=== PATIENT | female | born 1960 | race African-American/Black ===

== ENCOUNTER 2024-07-12 08:56 | Inpatient (IN) | payer MEDICARE ==
[~2024-07-12] VITALS: Ht 170.2 cm; Wt 93.0 kg
[2024-07-12] MEDS ORDERED: METOCLOPRAMIDE HCL 10 MG/2 ML VIAL ONE (10:05)
[2024-07-12] MEDS: METOCLOPRAMIDE HCL 10 MG/2 ML VIAL IV ONE (10:15)
[2024-07-12 10:33] LABS: BASOPHILS % (AUTO) 0.7 % (0.0-2.0); EOSINOPHILS % (AUTO) 0.4 % (0.0-6.0); HEMATOCRIT 36 % (33-45); HEMOGLOBIN 11.1 g/dL (11.5-14.8); LYMPHOCYTES # (AUTO) 0.7 K/uL (0.8-4.8); LYMPHOCYTES % (AUTO) 11.4 % (20.0-44.0); MEAN CORPUSCULAR HEMOGLOBIN 26 PG (26.0-33.0); MEAN CORPUSCULAR HGB CONC 31 g/dl (31.0-36.0); MEAN CORPUSCULAR VOLUME 84 fL (82-100); MONOCYTES # (AUTO) 0.2 K/uL (0.1-1.30); MONOCYTES % (AUTO) 3.8 % (2.0-12.0); NEUTROPHILS # (AUTO) 5.1 K/uL (1.8-8.9); NEUTROPHILS % (AUTO) 83.7 % (43.0-81.0); PLATELET COUNT (AUTO) 198 K/uL (150-450); RED BLOOD CELL COUNT(AUTO) 4.21 MIL/uL (4.0-5.2); RED CELL DISTRIBUTION WIDTH 19.3 % (11.5-15.0); WHITE BLOOD COUNT (AUTO) 6.1 K/uL (4.3-11.0)
[2024-07-12 11:00] LABS: ALANINE AMINOTRANSFERASE 47 U/L (12-78); ALBUMIN 4.5 g/dL (3.4-5.0); ALKALINE PHOSPHATASE 104 U/L (46-116); ASPARTATE AMINOTRANSFERASE 64 U/L (15-37); BILIRUBIN,DIRECT 0.1 mg/dL (0.0-0.2); BILIRUBIN,TOTAL 0.3 mg/dL (0.2-1.0); CALCIUM, SERUM 10.1 mg/dL (8.5-10.1); CARBON DIOXIDE 23 mmol/L (21-32); CHLORIDE 99 mmol/L (98-107); CREATININE 1.2 mg/dL (0.6-1.3); GLUCOSE 115 mg/dL (74-106); NT-PRO BNP 1024 pg/mL (0-125); POTASSIUM 4.6 mmol/L (3.5-5.1); SODIUM SERUM 136 mmol/L (136-145); TOTAL PROTEIN, SERUM 8.7 g/dL (6.4-8.2); UREA NITROGEN, BLOOD 17 mg/dL (7-18)
[2024-07-12] MEDS ORDERED: ASPIRIN 325 MG TABLET ONE (11:20)
[2024-07-12] MEDS ORDERED: LABETALOL HCL IV 100MG VIAL ONE (11:20)
[2024-07-12] MEDS: ASPIRIN 325 MG TABLET PO ONE (11:25)
[2024-07-12] MEDS: LABETALOL 20 MG/4 ML VIAL IV ONE (11:27)
[2024-07-12] MEDS ORDERED: IBUP-1957 PO (12:07)
[2024-07-12] MEDS ORDERED: NORT25CA PO (12:07)
[2024-07-12] MEDS ORDERED: OXYC10TA49 PO (12:07)
[2024-07-12] MEDS ORDERED: SPIR50TA5 PO (12:07)
[2024-07-12] MEDS ORDERED: OMEP20CA15 PO (12:07)
[2024-07-12] MEDS ORDERED: HYDR25TA4 PO (12:07)
[2024-07-12] MEDS ORDERED: COLC0.6C3 PO (12:07)
[2024-07-12] MEDS ORDERED: ALLO100T PO (12:07)
[2024-07-12] MEDS ORDERED: FLUT16SP NS (12:07)
[2024-07-12] MEDS ORDERED: ONDANSETRON HCL/PF 4 MG/2 ML VIAL IVP PRN (12:30)
[2024-07-12] MEDS ORDERED: Z GUARD REMEDY 4 OZ OINT TP PRN (12:30)
[2024-07-12] MEDS ORDERED: MAG HYDROX/AL HYDROX/SIMETH 30 ML UDC PO PRN (12:30)
[2024-07-12] MEDS ORDERED: MAGNESIUM HYDROXIDE 30 ML UDC PO PRN (12:30)
[2024-07-12] MEDS ORDERED: FLUTICASONE PROPIONATE 16 GM BOTTLE NS PRN (12:30)
[2024-07-12 12:45] VITALS: BP 167/82; TEMP 98.7; O2SAT 100
[2024-07-12] MEDS: ASPIRIN 81 MG TAB.CHEW PO ONE (13:01)
[2024-07-12] MEDS: hydrALAZINE HCL 50 MG TABLET PO SCH (13:24)
[2024-07-12] MEDS: ATORVASTATIN 10 MG TABLET PO SCH (13:25)
[2024-07-12] MEDS: PANTOPRAZOLE 40 MG TABLET.DR PO SCH (13:25)
[2024-07-12] MEDS: METOPROLOL TARTRATE 50 MG TABLET PO SCH (13:25)
[2024-07-12 13:33] LABS: THYROID STIMULATING HORMONE 1.76 uIU/mL (0.358-3.74)
[2024-07-12] MEDS ORDERED: NALOXONE HCL 0.4 MG/ML AMPUL IV PRN (14:30)
[2024-07-12] MEDS: oxyCODONE HCL SR 10MG TAB.SR.12H PO SCH (15:11)
[2024-07-12 16:00] VITALS: BP 144/70; TEMP 98.6; O2SAT 100
[2024-07-12] MEDS: COLCHICINE 0.6 MG TABLET PO SCH (17:09)
[2024-07-12] MEDS: SPIRONOLACTONE 25 MG TABLET PO SCH (17:10)
[2024-07-12] MEDS: ACETAMINOPHEN 325 MG TABLET PO PRN (18:49)
[2024-07-12 21:00] VITALS: BP 166/77; TEMP 99.3; O2SAT 100
[2024-07-12] MEDS: NORTRIPTYLINE HCL 25 MG CAPSULE PO SCH (21:16)
[2024-07-13 01:00] VITALS: BP 177/74; TEMP 98.8; O2SAT 100
[2024-07-13] MEDS: CLONIDINE HCL 0.1 MG TABLET PO PRN (01:45)
[2024-07-13 05:00] VITALS: BP 142/86; TEMP 98.2; O2SAT 99
[2024-07-13 06:47] LABS: BASOPHILS % (AUTO) 0.6 % (0.0-2.0); EOSINOPHILS # (AUTO) 0.2 K/uL (0.0-0.7); EOSINOPHILS % (AUTO) 3.2 % (0.0-6.0); HEMATOCRIT 37 % (33-45); HEMOGLOBIN 11.7 g/dL (11.5-14.8); LYMPHOCYTES # (AUTO) 1.8 K/uL (0.8-4.8); LYMPHOCYTES % (AUTO) 35.3 % (20.0-44.0); MEAN CORPUSCULAR HEMOGLOBIN 26 PG (26.0-33.0); MEAN CORPUSCULAR HGB CONC 32 g/dl (31.0-36.0); MEAN CORPUSCULAR VOLUME 84 fL (82-100); MONOCYTES # (AUTO) 0.5 K/uL (0.1-1.30); MONOCYTES % (AUTO) 9.5 % (2.0-12.0); NEUTROPHILS # (AUTO) 2.6 K/uL (1.8-8.9); NEUTROPHILS % (AUTO) 51.4 % (43.0-81.0); PLATELET COUNT (AUTO) 214 K/uL (150-450); RED BLOOD CELL COUNT(AUTO) 4.42 MIL/uL (4.0-5.2); RED CELL DISTRIBUTION WIDTH 19.2 % (11.5-15.0)
[2024-07-13 06:59] LABS: ALBUMIN 3.9 g/dL (3.4-5.0); BILIRUBIN,TOTAL 0.3 mg/dL (0.2-1.0); CALCIUM, SERUM 9.8 mg/dL (8.5-10.1); CREATININE 1.2 mg/dL (0.6-1.3); MAGNESIUM 1.7 mg/dL (1.8-2.4); PHOSPHORUS 4.1 mg/dL (2.5-4.9); POTASSIUM 4.2 mmol/L (3.5-5.1); TOTAL PROTEIN, SERUM 7.8 g/dL (6.4-8.2)
[2024-07-13] MEDS: ALLOPURINOL 100 MG TABLET PO SCH (08:49)
[2024-07-13] MEDS: HYDROCHLOROTHIAZIDE 25 MG TABLET PO SCH (08:50)
[2024-07-13 09:00] VITALS: BP 150/77; TEMP 97.9; O2SAT 100
[2024-07-13] MEDS: MAGNESIUM OXIDE 400 MG TABLET PO ONE (10:42)
[2024-07-13] MEDS ORDERED: ASPI-1169 PO (11:20)
[2024-07-13 12:39] VITALS: BP 150/83
[2024-07-14 11:10] LABS: *SPE ALBUMIN 3.9 g/dL (2.9-4.4); *SPE ALPHA-1-GLOBULIN 0.4 g/dL (0.0-0.4); *SPE ALPHA-2-GLOBULIN 0.8 g/dL (0.4-1.0); *SPE BETA GLOBULIN 1.4 g/dL (0.7-1.3); *SPE GLOBULIN, TOTAL 4.1 g/dL (2.2-3.9); *SPE M-SPIKE Not Observed g/dL (Not Observed); *SPEGAMMA GLOBULIN 1.6 g/dL (0.4-1.8)
== END 2024-07-13 12:50 | disposition home or self-care (01) | DRG 282 ==
LOC: ER 09:01 → TELE1 12:21
PROVIDERS: ADMIT Internal Medicine; ATTEND Internal Medicine
DX: I16.1 Hypertensive emergency (principal); I21.A1 Myocardial infarction type 2; G89.4 Chronic pain syndrome; E78.5 Hyperlipidemia, unspecified; R51.9 Headache, unspecified; I73.9 Peripheral vascular disease, unspecified; Z91.041 Radiographic dye allergy status
CPT/HCPCS: 36415; 70450-TC; 71045-TC; 80048-TC; 80053-TC; 80061-TC; 80076-TC; 83735-TC; 83880; 84100-TC; 84155; 84165; 84439-TC; 84443-TC; 84484-TC; 85025-TC; 93307-TC; G0378; J2765; J3490

== ENCOUNTER 2024-07-30 10:38 | Inpatient (IN) | payer MEDICARE ==
[~2024-07-30] VITALS: Ht 165.1 cm; Wt 82.6 kg
[~2024-07-30 10:38] MED LIST: ALLO100T PO; ASPI-1169 PO; COLC0.6C3 PO; FLUT16SP NS; HYDR25TA4 PO; IBUP-1957 PO; NORT25CA PO; OMEP20CA15 PO; OXYC10TA49 PO; SPIR50TA5 PO
[2024-07-30 11:20] LABS: BASOPHILS % (AUTO) 0.4 % (0.0-2.0); HEMATOCRIT 42 % (33-45); HEMOGLOBIN 13.5 g/dL (11.5-14.8); LYMPHOCYTES # (AUTO) 0.7 K/uL (0.8-4.8); LYMPHOCYTES % (AUTO) 22.1 % (20.0-44.0); MEAN CORPUSCULAR HEMOGLOBIN 26 PG (26.0-33.0); MEAN CORPUSCULAR HGB CONC 32 g/dl (31.0-36.0); MEAN CORPUSCULAR VOLUME 82 fL (82-100); MONOCYTES # (AUTO) 0.6 K/uL (0.1-1.30); MONOCYTES % (AUTO) 20.7 % (2.0-12.0); NEUTROPHILS # (AUTO) 1.7 K/uL (1.8-8.9); NEUTROPHILS % (AUTO) 55.8 % (43.0-81.0); PLATELET COUNT (AUTO) 159 K/uL (150-450); RED BLOOD CELL COUNT(AUTO) 5.13 MIL/uL (4.0-5.2); RED CELL DISTRIBUTION WIDTH 18.9 % (11.5-15.0)
[2024-07-30] MEDS: IV NS 0.9% 1,000 ML BAG IV ONE (11:30)
[2024-07-30 11:54] LABS: CALCIUM, SERUM 9.8 mg/dL (8.5-10.1); CARBON DIOXIDE 24 mmol/L (21-32); CHLORIDE 91 mmol/L (98-107); CREATININE 1.9 mg/dL (0.6-1.3); GLUCOSE 100 mg/dL (74-106); POTASSIUM 5.5 mmol/L (3.5-5.1); SODIUM SERUM 126 mmol/L (136-145); UREA NITROGEN, BLOOD 65 mg/dL (7-18)
[2024-07-30 12:00] LABS: ALANINE AMINOTRANSFERASE 45 U/L (12-78); ALBUMIN 3.6 g/dL (3.4-5.0); ALKALINE PHOSPHATASE 128 U/L (46-116); ASPARTATE AMINOTRANSFERASE 54 U/L (15-37); BILIRUBIN,DIRECT 0.1 mg/dL (0.0-0.2); BILIRUBIN,TOTAL 0.4 mg/dL (0.2-1.0); TOTAL PROTEIN, SERUM 8.4 g/dL (6.4-8.2)
[2024-07-30] MEDS ORDERED: ASPI-1169 PO (12:14)
[2024-07-30 14:27] LABS: APPEARANCE,URINE CLEAR (CLEAR); BILIRUBIN,URINE NEGATIVE (NEGATIVE); BLOOD, URINE 2+ Ery/uL (NEGATIVE); COLOR,URINE YELLOW (YELLOW); KETONES,URINE NEGATIVE (NEGATIVE); LEUKOCYTE ESTERASE ,URINE TRACE (NEGATIVE); NITRITE, URINE NEGATIVE (NEGATIVE); PH,URINE 5.5 (5.0-8.0); PROTEIN,URINE NEGATIVE (NEGATIVE); UGLUCOSE NEGATIVE (NEGATIVE); UROBILINOGEN,URINE 0.2 EU/dL (0.2)
[2024-07-30] MEDS ORDERED: ALLOPURINOL 100 MG TABLET ONE (14:33)
[2024-07-30] MEDS ORDERED: oxyCODONE HCL SR 10MG TAB.SR.12H PO ONE (14:33)
[2024-07-30 14:34] LABS: ADD URINE CULTURE NO; BACTERIA,URINE Few /HPF (None Seen)
[2024-07-30] MEDS ORDERED: ASPIRIN 81 MG TAB.CHEW ONE (14:34)
[2024-07-30] MEDS ORDERED: SPIRONOLACTONE 25 MG TABLET ONE (14:34)
[2024-07-30] MEDS ORDERED: HYDROCHLOROTHIAZIDE 25 MG TABLET ONE (14:34)
[2024-07-30] MEDS: SPIRONOLACTONE 25 MG TABLET PO ONE (14:56)
[2024-07-30] MEDS: ASPIRIN EC 81 MG TABLET.DR PO ONE (14:56)
[2024-07-30] MEDS: ALLOPURINOL 100 MG TABLET PO ONE (14:57)
[2024-07-30] MEDS: HYDROCHLOROTHIAZIDE 25 MG TABLET PO ONE (14:57)
[2024-07-30] MEDS: oxyCODONE HCL SR 10MG TAB.SR.12H PO SCH (14:58)
[2024-07-30] MEDS ORDERED: IBUPROFEN 800 MG TABLET PO PRN (15:00)
[2024-07-30] MEDS ORDERED: MAG HYDROX/AL HYDROX/SIMETH 30 ML UDC PO PRN (15:00)
[2024-07-30] MEDS ORDERED: ONDANSETRON HCL/PF 4 MG/2 ML VIAL IVP PRN (15:00)
[2024-07-30] MEDS ORDERED: ACETAMINOPHEN 325 MG TABLET PO PRN (15:00)
[2024-07-30] MEDS ORDERED: FLUTICASONE PROPIONATE 16 GM BOTTLE NS PRN (15:00)
[2024-07-30] MEDS ORDERED: MAGNESIUM HYDROXIDE 30 ML UDC PO PRN (15:00)
[2024-07-30] MEDS ORDERED: Z GUARD REMEDY 4 OZ OINT TP PRN (15:00)
[2024-07-30] MEDS: CEPHALEXIN MONOHYDRATE 500 MG CAPSULE PO SCH (16:10)
[2024-07-30] MEDS: COLCHICINE 0.6 MG TABLET PO SCH (16:21)
[2024-07-30] MEDS: IV NS 0.9% 1,000 ML BAG IV PRN (16:32)
[2024-07-30] MEDS ORDERED: SPIRONOLACTONE 25 MG TABLET PO SCH (17:00)
[2024-07-30 20:00] VITALS: BP 139/86; TEMP 98.8; O2SAT 98
[2024-07-30] MEDS: NORTRIPTYLINE HCL 25 MG CAPSULE PO SCH (21:16)
[2024-07-31] VITALS: BP 135/78; TEMP 98.8; O2SAT 98
[2024-07-31] MEDS: oxyCODONE IR immediate release 5 MG TABLET PO PRN (02:17)
[2024-07-31 05:00] VITALS: BP 129/82; TEMP 98.4; O2SAT 96
[2024-07-31 06:37] LABS: CREATININE 1.5 mg/dL (0.6-1.3); MAGNESIUM 1.9 mg/dL (1.8-2.4); POTASSIUM 4.7 mmol/L (3.5-5.1)
[2024-07-31 06:38] LABS: BASOPHILS % (AUTO) 0.4 % (0.0-2.0); EOSINOPHILS % (AUTO) 0.6 % (0.0-6.0); HEMATOCRIT 38 % (33-45); HEMOGLOBIN 12.6 g/dL (11.5-14.8); LYMPHOCYTES # (AUTO) 0.6 K/uL (0.8-4.8); LYMPHOCYTES % (AUTO) 24.9 % (20.0-44.0); MEAN CORPUSCULAR HEMOGLOBIN 27 PG (26.0-33.0); MEAN CORPUSCULAR HGB CONC 33 g/dl (31.0-36.0); MEAN CORPUSCULAR VOLUME 82 fL (82-100); MONOCYTES # (AUTO) 0.7 K/uL (0.1-1.30); MONOCYTES % (AUTO) 26.8 % (2.0-12.0); NEUTROPHILS # (AUTO) 1.2 K/uL (1.8-8.9); NEUTROPHILS % (AUTO) 47.3 % (43.0-81.0); PLATELET COUNT (AUTO) 135 K/uL (150-450); RED CELL DISTRIBUTION WIDTH 18.8 % (11.5-15.0); WHITE BLOOD COUNT (AUTO) 2.5 K/uL (4.3-11.0)
[2024-07-31 07:08] LABS: THYROID STIMULATING HORMONE 0.94 uIU/mL (0.358-3.74)
[2024-07-31 08:00] VITALS: BP 127/76; TEMP 97.5; O2SAT 98
[2024-07-31] MEDS: ASPIRIN 81 MG TAB.CHEW PO SCH (08:09)
[2024-07-31] MEDS: PANTOPRAZOLE 40 MG TABLET.DR PO SCH (08:09)
[2024-07-31] MEDS: ALLOPURINOL 100 MG TABLET PO SCH (08:09)
[2024-07-31] MEDS ORDERED: HYDROCHLOROTHIAZIDE 25 MG TABLET PO SCH (09:00)
[2024-07-31 09:52] LABS: ANISOCYTOSIS 1+; BASOPHILS % (MANUAL) 0 % (0.0-2.0); EOSINOPHILS % (MANUAL) 2 % (0-4); LYMPHOCYTES % (MANUAL) 22 % (16-48); MONOCYTES % (MANUAL) 25 % (0-11.0); NEUTROPHILS % (MANUAL) 57 (42-76); OVALOCYTES 1+; PLATELET ESTIMATE DECREASED
[2024-07-31 16:00] VITALS: BP 132/82; TEMP 97.9; O2SAT 98
[2024-07-31 20:00] VITALS: BP 111/82; TEMP 97.3; O2SAT 99
[2024-07-31 20:47] LABS: APPEARANCE,URINE CLEAR (CLEAR); BILIRUBIN,URINE NEGATIVE (NEGATIVE); BLOOD, URINE TRACE-INTA Ery/uL (NEGATIVE); COLOR,URINE YELLOW (YELLOW); KETONES,URINE NEGATIVE (NEGATIVE); LEUKOCYTE ESTERASE ,URINE NEGATIVE (NEGATIVE); NITRITE, URINE NEGATIVE (NEGATIVE); PROTEIN,URINE NEGATIVE (NEGATIVE); UGLUCOSE NEGATIVE (NEGATIVE); UROBILINOGEN,URINE 0.2 EU/dL (0.2)
[2024-07-31 20:52] LABS: CREATININE, URINE 84.2 MG/DL (30.0-125.0)
[2024-07-31 20:57] VITALS: BP 111/82; TEMP 97.3; O2SAT 99
[2024-07-31 21:14] LABS: ADD URINE CULTURE NO; BACTERIA,URINE Few /HPF (None Seen); RBC,URINE 0-2 /HPF (0-2)
[2024-07-31 21:18] LABS: EOSINOPHIL,URINE None Seen
[2024-08-01 08:25] VITALS: BP 127/72; TEMP 98.3; O2SAT 100
[2024-08-01 13:35] LABS: BASOPHILS % (AUTO) 0.4 % (0.0-2.0); HEMOGLOBIN 12.8 g/dL (11.5-14.8); LYMPHOCYTES # (AUTO) 0.6 K/uL (0.8-4.8)
[2024-08-01 13:39] LABS: ALBUMIN 3.2 g/dL (3.4-5.0); BILIRUBIN,TOTAL 0.3 mg/dL (0.2-1.0); CALCIUM, SERUM 9.1 mg/dL (8.5-10.1); CREATININE 1.5 mg/dL (0.6-1.3); MAGNESIUM 1.9 mg/dL (1.8-2.4); PHOSPHORUS 2.4 mg/dL (2.5-4.9); POTASSIUM 4.7 mmol/L (3.5-5.1); TOTAL PROTEIN, SERUM 7.3 g/dL (6.4-8.2)
[2024-08-01 13:41] LABS: EOSINOPHILS % (AUTO) 1.1 % (0.0-6.0); HEMATOCRIT 40 % (33-45); LYMPHOCYTES % (AUTO) 23.8 % (20.0-44.0); MEAN CORPUSCULAR HEMOGLOBIN 27 PG (26.0-33.0); MEAN CORPUSCULAR HGB CONC 32 g/dl (31.0-36.0); MEAN CORPUSCULAR VOLUME 83 fL (82-100); MONOCYTES # (AUTO) 0.9 K/uL (0.1-1.30); MONOCYTES % (AUTO) 31.7 % (2.0-12.0); NEUTROPHILS # (AUTO) 1.2 K/uL (1.8-8.9); PLATELET COUNT (AUTO) 111 K/uL (150-450); RED BLOOD CELL COUNT(AUTO) 4.83 MIL/uL (4.0-5.2); WHITE BLOOD COUNT (AUTO) 2.7 K/uL (4.3-11.0)
[2024-08-01] MEDS: K PHOS NEUTRAL 250 MG TABLET PO ONE (15:29)
[2024-08-01 16:27] LABS: BAND % (MANUAL) 1 % (0.0-5.0); BASOPHILS % (MANUAL) 0 % (0.0-2.0); EOSINOPHILS % (MANUAL) 0 % (0-4); LYMPHOCYTES % (MANUAL) 23 % (16-48); MONOCYTES % (MANUAL) 27 % (0-11.0); NEUTROPHILS % (MANUAL) 49 (42-76)
[2024-08-01 16:28] LABS: ANISOCYTOSIS 2+; PLATELET ESTIMATE DECREASED
[2024-08-01 20:22] VITALS: BP 124/77; TEMP 99.1; O2SAT 99
[2024-08-02 07:13] LABS: CALCIUM, SERUM 9.3 mg/dL (8.5-10.1); CREATININE 1.4 mg/dL (0.6-1.3); POTASSIUM 4.1 mmol/L (3.5-5.1)
[2024-08-02 08:00] VITALS: BP 123/83; TEMP 98.4; O2SAT 98
[2024-08-02] MEDS ORDERED: CEPH-570 PO (10:49)
[2024-08-02 16:00] VITALS: BP 140/94; TEMP 98.4; O2SAT 100
[2024-08-02 22:06] LABS: PTH, INTACT 42 pg/mL (15-65)
[2024-08-03 13:10] LABS: *SPE ALBUMIN 3.3 g/dL (2.9-4.4); *SPE ALPHA-1-GLOBULIN 0.4 g/dL (0.0-0.4); *SPE ALPHA-2-GLOBULIN 1.1 g/dL (0.4-1.0); *SPE GLOBULIN, TOTAL 3.3 g/dL (2.2-3.9); *SPE M-SPIKE Not Observed g/dL (Not Observed); *SPE PROTEIN TOTAL 6.6 g/dL (6.0-8.5); *SPEGAMMA GLOBULIN 0.8 g/dL (0.4-1.8)
== END 2024-08-02 18:50 | DRG 682 ==
LOC: ER 10:53 → TELE 14:32 → MED 07-31 08:26
PROVIDERS: ADMIT Nurse Practitioner Acute Care; ATTEND Nurse Practitioner Acute Care
DX: N17.0 Acute kidney failure with tubular necrosis (principal); G93.41 Metabolic encephalopathy; I21.4 Non-ST elevation (NSTEMI) myocardial infarction; E87.1 Hypo-osmolality and hyponatremia; N39.0 Urinary tract infection, site not specified; D68.59 Other primary thrombophilia; E86.1 Hypovolemia; T50.2X5A Adverse effect of carbonic-anhydrase inhibitors, benzothiadiazides and other diuretics, initial encounter; T39.395A Adverse effect of other nonsteroidal anti-inflammatory drugs [NSAID], initial encounter; Y92.039 Unspecified place in apartment as the place of occurrence of the external cause; E86.0 Dehydration; E66.9 Obesity, unspecified; Z68.28 Body mass index [BMI] 28.0-28.9, adult; R62.7 Adult failure to thrive; B96.20 Unspecified Escherichia coli [E. coli] as the cause of diseases classified elsewhere; Z96.82 Presence of neurostimulator; G89.29 Other chronic pain; K21.9 Gastro-esophageal reflux disease without esophagitis; M10.9 Gout, unspecified; I25.2 Old myocardial infarction; R54 Age-related physical debility; E78.5 Hyperlipidemia, unspecified; F32.A Depression, unspecified; Z96.653 Presence of artificial knee joint, bilateral; M54.16 Radiculopathy, lumbar region; M15.9 Polyosteoarthritis, unspecified; D70.9 Neutropenia, unspecified; D69.6 Thrombocytopenia, unspecified; I10 Essential (primary) hypertension; R26.2 Difficulty in walking, not elsewhere classified; Z88.1 Allergy status to other antibiotic agents; Z88.6 Allergy status to analgesic agent; Z91.041 Radiographic dye allergy status; Z88.5 Allergy status to narcotic agent; Z79.82 Long term (current) use of aspirin; E87.5 Hyperkalemia
CPT/HCPCS: 36415; 71045-TC; 76770-TC; 80048-TC; 80053-TC; 80061-TC; 80076-TC; 81001; 82550-TC; 82553; 82570-TC; 83605-TC; 83735-TC; 83935-TC; 83970; 84100-TC; 84155; 84165; 84300-TC; 84443-TC; 84484-TC; 85025-TC; 87040-TC; 87086-TC; 97110-TC; 97116-TC; 97530-TC; 97535-TC; A4223; G0378; J7030